=== PATIENT | female | born 1940 | race Caucasian/White ===

== ENCOUNTER 2016-12-02 04:17 | Inpatient (IN) | payer OTHER, MEDICARE ==
[~2016-12-02] VITALS: Ht 157.5 cm; Wt 97.5 kg
[~2016-12-02 04:17] MED LIST: CLONAZEPAM0.5 M2 PO; DILTIAZEM 12HR120 MG PO; FERROUS SULFAT325 M3 PO; LOPRESSOR100 M1 PO; LOPRESSOR50 M1 PO; PRAVACHOL20 M2 PO
--- NOTE | 2016-12-02 12:34 | Operative Report ---
Operative/Inv Procedure Report Surgery Date: 12/02/16 Name of Procedure: Right total knee arthroplasty Pre-Operative Diagnosis: Right knee osteoarthritis Post-Operative Diagnosis: Right knee osteoarthritis Estimated Blood Loss: less than 50ml Surgeon/[place] Machine Operator: BASILIO GARCIA,MAXIMILIAN Schumacher Anesthesia: spinal with adductor canal block Operative/Procedure Note Note: Patient brought to the operating room placed on the table supine position after adequate spinal anesthesia by the anesthesia department she received 2 g of Kefzol antibiotics. Clinically placed her on right upper thigh the right leg was first prepped with alcohol and then prepped formally with ChloraPrep. A dose of transient epigastric given at the beginning of the procedure and after the tourniquet had come down. 1 g each dose. As mentioned right leg prepped and draped in usual sterile fashion leg exsanguinated tourniquet inflated to 300 mmHg per minute with about 60 minutes. A midline incision carried down to the extensor retinaculum. A medial flap was created. A medial parapatellar approach was carried out. Medial release carried out around the posterior medial tibia. Anterior horns of the menisci ACL and PCL resected as well as the soft tissue on the anterior distal femur for sizing. The patella was everted the knee flexed and then using a inappropriate initial drill into the femoral and tibial intramedullary canal sequentially. Irrigation and suction was carried out. Appropriate first cutting jig placed on the distal femur 9 mm cut was made. This was done at 6 of valgus. Sizing block was then placed on the femur and the patient's femoral size turned out to be a 3. The appropriate size and 3 of external rotation the appropriate anterior posterior and chamfer cuts were made. The femoral notch was then cut out of the femur for a posterior stabilized component using the appropriate femoral cutting guide. The bone was later placed in the femoral canal. The tibia was then addressed to was cut at 90 perpendicular to the long axis of the tibia and a 3 posterior slope. Reference 10 mm off the least affected medial tibial plateau. The femoral component was placed a tibial component placed with a 13 polyethylene insert the was taken through range of motion the tibia then marked after an oral rotated with the femur. The tibia was then prepared using the appropriate eye beating punch. This did light up at the medial one third of the tibial tuberosity. The patella was then addressed soft tissue removed from the patella osteophytes removed appropriate reaming device used to take just enough bone to fill the patella with the size component that was best for this patient. Patellar outer diameter was 31 mm the tibial base plate turned out to be 3 also. After completing all of the cuts and drawing blood. Patella though posterior irrigation was carried out. Components were cemented in place starting with the tibia and the femur and the patella. Extraneous cement removed. The was taken through range of motion again with a [address] which gave her the best stability and full range of motion. We then snapped the final component of polyethylene into the tibial base plate. The tourniquet was released any bleeding areas coagulated several pulsed irrigation carried out there were 2 injections done in the in the one in the deep layer of the posterior capsule and along the medial femur that again was with long-acting Marcaine morphine and Toradol. Section injection was into the quad layer. After several pulsed irrigation was closed in a layered fashion dry sterile dressings were applied she was sent back to the recovery room in stable condition there were no complications and all needle and shrink counts were correct end of dictation by Dr. Luo thank you
--- NOTE | 2016-12-02 16:13 | PN- Orthopedic ---
Subjective Subjective: POST-OP NOTE: She is nauseous and vomiting in pacu. No dizziness. No shortness of breath. No chest pains. Not yet out of bed since she is currently in pacu and feeling miserable from nausea/vomiting. She has been given multiple anti-emetics with little improvement so far. Objective Vital Signs and I&Os pacu flowsheet reviewed (vss), u/o >700 (OR & PACU) Physical Exam: General - alert & oriented x 3. uncomfortable. no acute distress. Lungs - clear bilaterally. no w/r/r. Cardiac - s1s2. reg. Abdomen - soft. nontender. - uribe draining clear, yellow urine. Extremities - warm bilaterally. no c/c/e. calves soft and nontender b/l. right leg dressing c/d/i. nvi. Current Medications: Current Medications Sig/Robby Start time Last Medication Dose Route Stop Time Status Admin Cefazolin Sodium 1,000 MG ONCE 12/02 0000 NR IV 12/02 4349 Assessment/Plan Assessment/Plan This 76 year old female with hx vertigo, hx tachycardia, gerd, currently POD#0 s /p right total knee replacement for primary osteoarthritis advance diet as tolerated anti-emetics as needed for nausea/vomiting pain control as ordered debbie-operative ancef eliquis 2.5 bid - dvt ppx PT eval d/c uribe in am f/u am labs dressing change POD#2 d/c planning in 2-3 days will d/w Core Measures/Miscellaneous Venous Thromboembolism VTE Risk Factors: Age > 40, Surgery VTE Contraindications: No Contraindications VTE Diagnosis: No Beta January Is Beta January a Home Med? Yes If Yes, Was This Ordered Today? Yes Antibiotics Is Patient on Antibiotics? Yes If Yes: prophylaxis
--- NOTE | 2016-12-02 18:10 | NUR ---
PT A/O X3. PT ON 2L NC . PT STATES PAIN MODERATE DENIES NEED FOR PRN PAIN MED AT PRESENT. VSS. NO C/O CP. ABD SOFT. TODD TO BSD. BULKY DRSG TO R KNEE COVERED W CARMEN WRAP. + CMS . ALPS TO BLE. CALL [facility] USE INSTRUCTED. WILL MONITOR .
[2016-12-02 18:25] VITALS: BP 124/74
--- NOTE | 2016-12-02 19:38 | NUR ---
PT C/O "HEART RACING". HR 140 BP 120/70 TEMP 97.1. PAIN MODERATE 5/10 IV TYLENOL GIVEN. MIKE ROJAS AWARE AND EKG ORDERED. WILL MONITOR
--- NOTE | 2016-12-02 19:49 | NUR ---
STAT BLOOD ORDERED AND OBTAINED. DENIES CP. STATES " MY HEARTS STILL RACING". PT TO BE TRANSFERED TO [address] [place] [address]. AWAITNI BED ASSIGNMENT.
[2016-12-02 20:15] VITALS: BP 120/70
[2016-12-02 20:25] LABS: ABSOLUTE BASOPHIL COUNT 0 /CUMM (0.0-0.2); ABSOLUTE LYMPH COUNT 0.8 /CUMM (1.2-3.4); BASOPHIL % 0 % (0.0-2.0); EOSINOPHIL % 0 % (0-5); HEMATOCRIT 43.5 % (37-47); MEAN CORPUSCULAR HGB 34.3 PG (27.0-31.0); MEAN CORPUSCULAR HGB CONC 33.6 G/DL (33.0-37.0); MEAN CORPUSCULAR VOLUME 101.9 FL (81.0-99.0); MEAN PLATELET VOLUME 8.1 FL (7.4-10.4); PLATELET COUNT 227 /CUMM (130-400); RBC DISTRIBUTION WIDTH 12.8 % (11.5-14.5); RED BLOOD CELL CT 4.26 /CUMM (4.20-5.40); WHITE BLOOD CELL COUNT 15.4 /CUMM (4.8-10.8)
[2016-12-02 20:27] LABS: ABSOLUTE GRANULOCYTE CT 14.6 /CUMM (1.4-6.5); ABSOLUTE MONOCYTE COUNT 0.1 /CUMM (0.10-0.60)
--- NOTE | 2016-12-02 20:27 | RADIOLOGY REPORT ---
EXAMINATION: XR PORTABLE CHEST CLINICAL INFORMATION: Postop. Tachycardia. COMPARISON: None TECHNIQUE: Portable frontal view of the chest was obtained. 8:07 PM FINDINGS: No significant abnormality is noted involving the heart, lungs, mediastinum, bony thorax or soft tissues. IMPRESSION: Unremarkable examination.
[2016-12-02 20:43] LABS: GRANULOCYTE % 94.8 % (42.2-75.2)
--- NOTE | 2016-12-02 21:50 | Cons- Medical ---
General Information and HPI Consulting Request Date of Consult: 12/02/16 Requested By: MAXIMILIAN RICHMOND MD Reason for Consult: A fib with RVR Source of Information: patient Exam Limitations: no limitations History of Present Illness: 76-year-old female with past medical history of palpitation (?paroxysmal atrial fibrillation), GERD, vertigo, osteoarthritis was operated on today. She underwent right total knee replacement for primary osteoarthritis, without apparent complications today. Patient complained of palpitations around 7:30 PM today, for which the surgical PA requested medical evaluation/consultation. Patient gave history of similar palpitations in the past, but denied chest pain, shortness of breath, dizziness, vertigo. She had some nausea but no vomiting. Patient follows language assistant Dr. Cheri Neely in [place]. Allergies/Medications Allergies: Coded Allergies: No Known Allergies (11/19/16) Home Med List: Clonazepam 0.5 MG TABLET 1 TAB PO BIDP VERTIGO (Reported) Diltiazem HCl (Diltiazem 12HR ER) 120 MG CAP.ER.12H 1 CAP PO DAILY HTN ( Reported) Ferrous Sulfate 325 MG (65 MG IRON) TABLET 1 TAB PO DAILY PRE OP (Reported) Metoprolol Tartrate (Lopressor) 100 MG TABLET 1 TAB PO BID BP (Reported) Metoprolol Tartrate (Lopressor) 50 MG TABLET 1 TAB PO NOON BP (Reported) Pravastatin Sodium (Pravachol) 20 MG TABLET 1 TAB PO DAILY CHOLESTEROL ( Reported) Review of Systems Review of Systems Constitutional: Reports: no symptoms. EENTM: Reports: no symptoms. Cardiovascular: Reports: see HPI, palpitations. Denies: chest pain, orthopena, peripheral edema. Respiratory: Reports: no symptoms. Denies: cough, short of breath, wheezing. GI: Reports: no symptoms. Genitourinary: Reports: no symptoms. Musculoskeletal: Reports: see HPI. Skin: Reports: see HPI. Neurological/Psychological: Reports: no symptoms. Hematologic/Endocrine: Reports: no symptoms. All Other Systems: Reviewed and Negative Past History Medical History Neurological: vertigo EENT: NONE Cardiovascular: TACHYCARDIC Respiratory: NONE Gastrointestinal: GERD Hepatic: NONE Renal: NONE Musculoskeletal: NONE Psychiatric: NONE Endocrine: osteoporosis Blood Disorders: NONE Cancer(s): NONE REWORKER/Reproductive: NONE Surgical History Surgical History: knee replacement Psychosocial History Where Do You Live? Home Services at Home: None Smoking Status: Never Smoked Exam & Diagnostic Data Last 24 Hrs of Vital Signs/I&O Vital Signs Date Time Temp Pulse Resp B/P B/P Pulse O2 O2 Flow FiO2 Mean Ox Delivery Rate 12/02 2014 97.9 118 16 120/70 97 Nasal 2.0L Cannula 12/02 1944 132 120/70 12/02 1852 Nasal 2.0L Cannula 12/02 1825 96.1 85 16 124/74 98 Nasal 2.0L Cannula Physical Exam General Appearance: anxious, mild distress, obese Head: atraumatic, normal appearance Eyes: Bilateral: normal appearance, PERRL, EOMI. Ears, Nose, Throat: normal pharynx, normal ENT inspection, hearing grossly normal, moist mucus membranes Neck: normal inspection, supple, full range of motion Respiratory: normal breath sounds, chest non-tender, no respiratory distress, quiet respiration, lungs clear Cardiovascular: normal peripheral pulses, tachycardia, irregularly irregular, S1 , S2 normal Peripheral Pulses: 4+ radial (R), 4+ radial (L) Gastrointestinal: normal bowel sounds, soft, non-tender, no organomegaly Back: normal inspection, normal range of motion Extremities: normal inspection, right side surgery today, dressing in situ Neurologic/Psych: no motor/sensory deficits, awake, alert, oriented x 3, normal mood/affect, grossly intact Skin: intact, normal color, warm/dry Lymphatic: no anterior cervical jeancarlos Last 24 Hrs of Labs/Alberto: Laboratory Tests 12/02/161952: Anion Gap 11, Estimated GFR > 60, BUN/Creatinine Ratio 16.0, Phosphorus 2.4 L, Magnesium 1.8, Troponin I 0.01, TSH 0.573, Free T4 1.06, CBC w Diff NO MAN DIFF REQ, RBC 4.26, MCV 101.9 H, MCH 34.3 H, RDW 12.8, MPV 8.1, Gran % 94.8 H, Lymphocytes % 4.9 L, Monocytes % 0.3 L, Eosinophils % 0, Basophils % 0 L, Absolute Granulocytes 14.6 H, Absolute Lymphocytes 0.8 L, Absolute Monocytes 0.1 L, Absolute Eosinophils 0.0, Absolute Basophils 0, PUBS MCHC 33.6 Diagnostic Data EKG Results atrial fibrillation with heart rate 122, QTc 508, no ST-T changes, no signs of blocks. CXR Results Chest x-ray: Unremarkable examination on 12/02/2016 Assessment/Plan Assessment/Plan 76-year-old female with past medical history of tachycardia (?paroxysmal atrial fibrillation), GERD, vertigo, osteoarthritis was operated on with right total knee replacement for osteoarthritis, is currently having atrial fibrillation with rapid ventricular response. She mentions of paroxysmal palpitations in the past and she takes metoprolol 250 mg in toto daily, and Eliquis daily. Of note, her EKG from October 2016 shows normal sinus rhythm. She had not receive her 100mg Metoprolol this evening, when the symptoms began. Plan: * Transfer patient to telemetry for further monitoring * Rule out ACS with serial EKG and troponin, noting that the current troponin is 0.01 and the EKG does not show any ST-T changes. * Start Cardizem drip 125 mg in 100 mL normal saline at 5 mL per hour, and titrate heart rate and rhythm. When patient breaks into sinus rhythm, obtain an EKG. Inform MOD/Telecommunications Officer if HR<60/min. * Replete potassium to>4, and magnesium to>2 (IV); repeat BP in the morning * Continue metoprolol as home medication, that is 100 mg twice a day and 50 mg at noon time * Please give Eliquis 5mg PO BID if okay from surgical side * Give Inj Tigan 200mg IM for nausea, ovoid QTc prolonging drugs like Zofran as the QTc is already >500. * Telecommunications Officer Dr Valentín Hoffmann will add more recommendations. * Call MOD (pager [phone]) if necessary. Consult Acknowledgment - Thank you for your consult request.
--- NOTE | 2016-12-02 22:43 | Event Note ---
Event Note Event Note: Called by nurse on 2NA regarding patient complaint of palpitations and the sensation that "my heart is beating out of my chest". The following studies were done: EKG: atrial fibrillation with RVR Chest Xray: unremarkable CBC: hgb:hct 14.6:43.5 Lytes: Hypokalemia 3.3, Magnesium 1.8 Troponins: 0.01 Physical exam: Alert and oriented x3, no acute distress Cardiac: Irregulary irregular, tachycardic Pulmonary: Non labored respiratory effort, 2L nasal cannula, breath sounds clear to auscultation. Abdomen: Non-tender, non-distended Extremity: Moves all extremities, distal sensation intact, skin warm and well perfused, dressing dry and intact, no on Q in place, bilateral calves soft and non-tender. Pateint was transferred to telemetry. A 500cc bolus of NS was given due to patients copious amounts of emesis in the early post operative period. PO metropolol was given while still on general surgical floor. A consult was placed with DR. Hoffmann and subsequently a cardizem gtt at 5/hr was started on telemetry floor. Potassium was repleted with three runs of 10 mEq IV. Magnesium was repleted with one iv dose. Labs will be redrawn at midnight to repeat lytes as well as troponins. Anticoagulation was discussed and Eliquis 5 mg po bid will be started tomorrow if patient is tolerating po, if not, a hep gtt will be initiated. The situation and plan of care was discussed with Dr. Luo who is in agreement. Patient was evaluated by house staff and they will follow progress and co-manage patient.
[2016-12-03] VITALS: BP 118/76
[2016-12-03 02:00] VITALS: BP 110/68
[2016-12-03 04:00] VITALS: BP 106/68
--- NOTE | 2016-12-03 07:26 | PN- Orthopedic ---
Subjective Subjective: PATIENT HAD AN EPISODE AOF AFIB LAST NIGHT ON TELEMETRY BUT DOING WELL.States minimal pain has not been oob yet expect OOB today WBAT with walker ok to bend knee 0-120 Objective Vital Signs and I&Os Vital Signs Date Time Temp Pulse Resp B/P B/P Pulse O2 O2 Flow FiO2 Mean Ox Delivery Rate 12/03 0400 97.9 68 18 106/68 97 Nasal 2.0L Cannula 12/03 0200 98.7 98 18 110/68 96 Nasal 2.0L Cannula 12/03 0000 Nasal 2.0L Cannula 12/03 0000 98.7 108 18 118/76 96 Nasal 2.0L Cannula 12/02 2014 97.9 118 16 120/70 97 Nasal 2.0L Cannula 12/02 1944 132 120/70 12/02 1852 Nasal 2.0L Cannula 12/02 1825 96.1 85 16 124/74 98 Nasal 2.0L Cannula Intake & Output 12/03 0800 12/03 0000 12/02 1600 12/02 0800 12/02 0000 12/01 1600 Intake Total 500 Output Total 1100 Balance -600 Intake, IV 500 Intake, Oral 0 Output, Urine 1100 Patient 215 lb Weight Weight Reported by Patient Measurement Method Physical Exam: patient alert minimal pain dressing clean neuro intact dressing clean Assessment/Plan Assessment/Plan doing well orthopedically POD#1 s/p right total knee OOB today DVT prophylaxis cardiology and medicine for her arrythmia. probable dc to SNF sat am Core Measures/Miscellaneous Venous Thromboembolism VTE Risk Factors: Age > 40, Surgery VTE Contraindications: No Contraindications VTE Diagnosis: No Beta January Is Beta January a Home Med? Yes If Yes, Was This Ordered Today? Yes Antibiotics Is Patient on Antibiotics? Yes If Yes: prophylaxis Attending MD Review Statement Attending Statement Attending MD Statement: examined this patient
[2016-12-03 08:09] LABS: ABSOLUTE BASOPHIL COUNT 0 /CUMM (0.0-0.2); ABSOLUTE EOSINOPHIL COUNT 0 /CUMM (0.0-0.7); ABSOLUTE GRANULOCYTE CT 17.8 /CUMM (1.4-6.5); ABSOLUTE MONOCYTE COUNT 0.3 /CUMM (0.10-0.60); BASOPHIL % 0 % (0.0-2.0); EOSINOPHIL % 0 % (0-5); GRANULOCYTE % 93.2 % (42.2-75.2); HEMATOCRIT 40.8 % (37-47); MEAN CORPUSCULAR HGB 34.7 PG (27.0-31.0); MEAN CORPUSCULAR VOLUME 102.3 FL (81.0-99.0); MEAN PLATELET VOLUME 8.4 FL (7.4-10.4); PLATELET COUNT 222 /CUMM (130-400); RBC DISTRIBUTION WIDTH 12.9 % (11.5-14.5); RED BLOOD CELL CT 3.99 /CUMM (4.20-5.40)
--- NOTE | 2016-12-03 08:22 | PN- Gen Med ---
Assessment/Plan Assessment: 76-year-old female with past medical history of tachycardia (?paroxysmal atrial fibrillation), GERD, vertigo, osteoarthritis was operated on with right total knee replacement for osteoarthritis, is currently having atrial fibrillation with rapid ventricular response. She mentions of paroxysmal palpitations in the past and she takes metoprolol 250 mg in toto daily, and Eliquis daily. Of note, her EKG from October 2016 shows normal sinus rhythm. She converted back to normal sinus rhythm confirmed by EKG around 3 AM this morning. Plan: * We will discontinue Cardizem drip and will watch patient on her current regimen of metoprolol. * ACS was ruled out with negative troponins * Replete potassium to keep>4, and magnesium to keep>2 ; repeat BP in the morning * Continue metoprolol as home medication, that is 100 mg twice a day and 50 mg at noon time * Please give Eliquis 5mg PO BID if okay from surgical side * Give Inj Tigan 200mg IM for nausea, ovoid QTc prolonging drugs like Zofran as the QTc is already >500. * Patient was discussed with Dr. Hoffmann * Call MOD (pager [phone]) if necessary. Problem List: 1. Atrial fib/flutter, transient DVT/Prophylaxis: pharmacological Consulting Request: Consulting Specialty: Cardiology Consulting Physician: Dr. Hoffmann Reason for Consult: ATRIAL FIBRILLATION Subjective Follow-up For: A. fib Complaints: no complaints Tele-Events Since Last Visit: Normal sinus rhythm heart rate ranges from 60s to 70s Subjective: The patient was seen and examined this morning. She was lying comfortably in bed with complaining of mild nausea. She is experiencing nausea after taking oxycodone and we will avoid this for now. She was converted back to sinus rhythm around 3 AM this morning and remained in sinus rhythm. Her heart rate dropped down to 60s and currently she is on Cardizem drip. She denied any palpitations, chest pain, dizziness or headache. Review of Systems Constitutional: Denies: chills, diaphoresis. Cardiovascular: Denies: chest pain, edema, orthopena, palpitations. Respiratory: Denies: hemoptysis, orthopnea. Gastrointestinal: Reports: nausea. Genitourinary: Denies: frequency, hematuria. Objective Last 24 Hrs of Vital Signs/I&O Vital Signs Date Time Temp Pulse Resp B/P B/P Pulse O2 O2 Flow FiO2 Mean Ox Delivery Rate 12/03 0400 97.9 68 18 106/68 97 Nasal 2.0L Cannula 12/03 0200 98.7 98 18 110/68 96 Nasal 2.0L Cannula 12/03 0000 Nasal 2.0L Cannula 12/03 0000 98.7 108 18 118/76 96 Nasal 2.0L Cannula 12/02 2014 97.9 118 16 120/70 97 Nasal 2.0L Cannula 12/02 1944 132 120/70 12/02 1852 Nasal 2.0L Cannula 12/02 1825 96.1 85 16 124/74 98 Nasal 2.0L Cannula Intake & Output 12/03 1600 12/03 0800 12/03 0000 Intake Total 1380 Output Total 2450 Balance -1070 Intake, IV 1140 Intake, Oral 240 Output, Urine 2450 Patient 215 lb Weight Weight Reported by Patient Measurement Method Physical Exam General Appearance: Alert, Oriented X3, Cooperative Skin: No Significant Lesion Cardiovascular: Regular Rate, Normal S1, Normal S2 Lungs: Normal Air Movement Current Medications: Current Medications Sig/Robby Start time Last Medication Dose Route Stop Time Status Admin Acetaminophen 1,000 MG Q6-PRN PRN 12/03 0845 AC N/A 1 UNIT IV Acetaminophen 1,000 MG Q6H 12/02 1915 DC 12/03 N/A 1 UNIT IV 12/03 1329 0615 Apixaban 2.5 MG BID 12/03 1000 CAN PO Apixaban 5 MG BID 12/02 2200 AC 12/03 PO 0216 Cefazolin Sodium 2 GM Q8H 12/02 2000 DC 12/03 N/A 1 UNIT IV 12/03 0429 0549 Cefazolin Sodium 1,000 MG ONCE 12/02 0000 DC IV 12/02 2359 Clonazepam 0.5 MG BID PRN 12/02 181 AC 12/03 PO 12/09 1814 0131 Dextrose/Lactated 1,000 ML Q13H 12/02 181 DC 12/02 Ringer's IV 1848 Diltiazem HCl 120 MG DAILY 12/03 1000 CAN PO Diltiazem HCl 125 MG Q24H 12/02 2045 DC 12/02 Sodium Chloride 100 ML IV 2136 Docusate Sodium 100 MG DAILY NEEDED PRN 12/02 1814 AC PO Famotidine 20 MG .STK-MED ONE 12/02 1343 DC IV 12/02 1344 Fentanyl Citrate 200 MCG .STK-MED ONE 12/02 0950 DC IM 12/02 0951 Hydromorphone HCl 2 MG .STK-MED ONE 12/02 1259 DC IM 12/02 1300 Hydromorphone HCl 2 MG .STK-MED ONE 12/02 0950 DC IM 12/02 0951 Lorazepam 2 MG .STK-MED ONE 12/02 1951 DC IM 12/02 1952 Magnesium Sulfate 1 GM ONCE ONE 12/02 2100 DC 12/03 Dextrose/Water 100 ML IV 12/03 0059 0638 Metoclopramide HCl 10 MG .STK-MED ONE 12/02 1552 DC IM 12/02 1553 Metoprolol Tartrate 50 MG 1200 12/03 1200 AC PO Metoprolol Tartrate 100 MG BID 12/02 2199 AC 12/02 PO 1944 Midazolam HCl 4 MG .STK-MED ONE 12/02 0951 DC IM 12/02 0952 Morphine Sulfate 2 MG Q3P PRN 12/02 1814 AC IV Morphine Sulfate 2 MG Q3P PRN 12/02 181 AC 12/02 IV 2313 Ondansetron HCl 4 MG Q6P PRN 12/02 181 AC 12/03 IV 0812 Oxycodone HCl 5 MG Q4P PRN 12/02 1914 AC PO Oxycodone HCl 10 MG Q4P PRN 12/02 191 AC 12/03 PO 0537 Oxycodone/ 1 TAB Q4P PRN 12/02 181 DC Acetaminophen PO Oxycodone/ 2 TAB Q4P PRN 12/02 181 DC Acetaminophen PO Polyethylene Glycol 17 GM DAILY NEEDED PRN 12/02 181 AC PO Potassium Chloride 40 MEQ ONCE ONE 12/03 0845 DC PO 12/03 0846 Potassium Chloride 10 MEQ Q1H 12/02 2100 DC 12/03 IV 12/02 2301 0352 Pravastatin Sodium 20 MG 1700 12/03 1700 AC PO Senna/Docusate Sodium 2 TAB AT BEDTIME NEED.. 12/02 181 AC PO Sodium Chloride 500 ML BOLUS ONE 12/02 194 DC 12/03 IV 12/02 2044 0033 Trimethobenzamide HCl 200 MG TIDPRN PRN 12/02 2100 AC 12/02 IM 2312 Last 24 Hrs of Labs/Mics: Laboratory Tests 12/03/16 0625: Anion Gap 11, Estimated GFR > 60, BUN/Creatinine Ratio 14.0, CBC w Diff Pending, WBC Pending, RBC Pending, Hgb Pending, Hct Pending, MCV Pending, MCH Pending, RDW Pending, Plt Count Pending, MPV Pending, Gran % Pending, Lymphocytes % Pending, Monocytes % Pending, Eosinophils % Pending, Basophils % Pending, Absolute Granulocytes Pending, Absolute Lymphocytes Pending, Absolute Monocytes Pending, Absolute Eosinophils Pending, Absolute Basophils Pending, PUBS MCHC Pending 12/03/16 0230: Anion Gap 10, Estimated GFR > 60, BUN/Creatinine Ratio 14.0, Magnesium Pending, Troponin I 0.01 12/02/16 1953: Anion Gap 11, Estimated GFR > 60, BUN/Creatinine Ratio 16.0, Phosphorus 2.4 L, Magnesium 1.8, Troponin I 0.01, TSH 0.573, Free T4 1.06, CBC w Diff NO MAN DIFF REQ, RBC 4.26, MCV 101.9 H, MCH 34.3 H, RDW 12.8, MPV 8.1, Gran % 94.8 H, Lymphocytes % 4.9 L, Monocytes % 0.3 L, Eosinophils % 0, Basophils % 0 L, Absolute Granulocytes 14.6 H, Absolute Lymphocytes 0.8 L, Absolute Monocytes 0.1 L, Absolute Eosinophils 0.0, Absolute Basophils 0, PUBS MCHC 33.6 Microbiology 12/02 1045 URINE ROUT: Urine Culture - RES
--- NOTE | 2016-12-03 09:39 | Cons- Cardiology ---
General Information and HPI Consulting Request Date of Consult: 12/03/16 Requested By: BASILIO GARCIA,MAXIMILIAN Schumacher Reason for Consult: atrial fibrillation History of Present Illness: The patient is a pleasant 76-year-old female who is followed by Dr. Neely from my group with history of hypertension, anxiety, and palpitations who was admitted for right knee arthroplasty yesterday. The surgery was without couple locations, however postoperatively she was noted to develop atrial fibrillation. The ventricular rate was mildly elevated, and IV diltiazem was started. Her usual dose of metoprolol is 100 mg twice a day with an additional 50 mg dose in the middle of the day. This was restarted, IV diltiazem was discontinued. She converted to sinus rhythm after several hours. She notes that while she was in atrial fibrillation she felt a sensation of palpitations, which were different from her usual palpitations. She is now feeling well from a cardiac standpoint. No current palpitations. No chest pain. No lightheadedness or dizziness. No nausea or vomiting. No diaphoresis. Allergies/Medications Allergies: Coded Allergies: No Known Allergies (11/19/16) Home Med List: Clonazepam 0.5 MG TABLET 1 TAB PO BIDP VERTIGO (Reported) Diltiazem HCl (Diltiazem 12HR ER) 120 MG CAP.ER.12H 1 CAP PO DAILY HTN ( Reported) Ferrous Sulfate 325 MG (65 MG IRON) TABLET 1 TAB PO DAILY PRE OP (Reported) Metoprolol Tartrate (Lopressor) 100 MG TABLET 1 TAB PO BID BP (Reported) Metoprolol Tartrate (Lopressor) 50 MG TABLET 1 TAB PO NOON BP (Reported) Pravastatin Sodium (Pravachol) 20 MG TABLET 1 TAB PO DAILY CHOLESTEROL ( Reported) Current Medications: Current Medications Sig/Robby Start time Last Medication Dose Route Stop Time Status Admin Acetaminophen 1,000 MG Q6-PRN PRN 12/03 0845 AC N/A 1 UNIT IV Acetaminophen 1,000 MG Q6H 12/02 1915 DC 12/03 N/A 1 UNIT IV 12/03 1329 0615 Apixaban 2.5 MG BID 12/03 1000 CAN PO Apixaban 5 MG BID 12/02 2200 AC 12/03 PO 0921 Cefazolin Sodium 2 GM Q8H 12/02 2000 DC 12/03 N/A 1 UNIT IV 12/03 0429 0549 Cefazolin Sodium 1,000 MG ONCE 12/02 0000 DC IV 12/02 2359 Clonazepam 0.5 MG BID PRN 12/02 1815 AC 12/03 PO 12/09 1814 0131 Dextrose/Lactated 1,000 ML Q13H 12/02 1815 DC 12/02 Ringer's IV 1848 Diltiazem HCl 120 MG DAILY 12/03 1000 CAN PO Diltiazem HCl 125 MG Q24H 12/02 2045 DC 12/02 Sodium Chloride 100 ML IV 2136 Docusate Sodium 100 MG DAILY NEEDED PRN 12/02 181 AC 12/03 PO 0919 Famotidine 20 MG .STK-MED ONE 12/02 1343 DC IV 12/02 1344 Hydromorphone HCl 2 MG .STK-MED ONE 12/02 1259 DC IM 12/02 1300 Lorazepam 2 MG .STK-MED ONE 12/02 1951 DC IM 12/02 1952 Magnesium Sulfate 1 GM ONCE ONE 12/02 2100 DC 12/03 Dextrose/Water 100 ML IV 12/03 0059 0638 Meclizine HCl 12.5 MG ONCE ONE 12/03 1000 DC PO 12/03 1001 Metoclopramide HCl 10 MG .STK-MED ONE 12/02 1552 DC IM 12/02 1553 Metoprolol Tartrate 50 MG 1200 12/03 1200 AC PO Metoprolol Tartrate 100 MG BID 12/02 2200 AC 12/03 PO 0920 Morphine Sulfate 2 MG Q3P PRN 12/02 1814 AC IV Morphine Sulfate 2 MG Q3P PRN 12/02 181 AC 12/02 IV 2313 Ondansetron HCl 4 MG Q6P PRN 12/02 181 AC 12/03 IV 0812 Oxycodone HCl 5 MG Q4P PRN 12/02 191 AC PO Oxycodone HCl 10 MG Q4P PRN 12/02 191 AC 12/03 PO 0537 Oxycodone/ 1 TAB Q4P PRN 12/02 1814 DC Acetaminophen PO Oxycodone/ 2 TAB Q4P PRN 12/02 181 DC Acetaminophen PO Polyethylene Glycol 17 GM DAILY NEEDED PRN 12/02 181 AC PO Potassium Chloride 40 MEQ ONCE ONE 12/03 0845 DC 12/03 PO 12/03 0846 0921 Potassium Chloride 10 MEQ Q1H 12/02 2100 DC 12/03 IV 12/02 2301 0352 Pravastatin Sodium 20 MG 1700 12/03 1700 AC PO Senna/Docusate Sodium 2 TAB AT BEDTIME NEED.. 12/02 181 AC PO Sodium Chloride 500 ML BOLUS ONE 12/02 1944 DC 12/03 IV 12/02 2044 0033 Trimethobenzamide HCl 200 MG TIDPRN PRN 12/02 2100 AC 12/03 IM 0921 Review of Systems Review of Systems: No rash. No tremor. No melena. All other systems were reviewed, and were noted to be negative. 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 Home Services at Home: None Smoking Status: Never Smoked Exam & Diagnostic Data Vital Signs and I&O Vital Signs Date Time Temp Pulse Resp B/P B/P Pulse O2 O2 Flow FiO2 Mean Ox Delivery Rate 12/03 0920 65 106/68 12/03 0400 97.9 68 18 106/68 97 Nasal 2.0L Cannula 12/03 0200 98.7 98 18 110/68 96 Nasal 2.0L Cannula 12/03 0000 Nasal 2.0L Cannula 12/03 0000 98.7 108 18 118/76 96 Nasal 2.0L Cannula 12/02 2014 97.9 118 16 120/70 97 Nasal 2.0L Cannula 12/03 1943 132 120/70 12/02 1852 Nasal 2.0L Cannula 12/02 1824 96.1 85 16 124/74 98 Nasal 2.0L Cannula Intake & Output 12/03 1600 12/03 0800 12/03 0000 12/02 1600 12/02 0800 12/02 0000 Intake Total 1380 Output Total 2450 Balance -1070 Intake, IV 1140 Intake, Oral 240 Output, Urine 2450 Patient 215 lb Weight Weight Reported by Patient Measurement Method Physical Exam: Gen: The patient is in no acute distress HEENT: Normal nose, ears, and oropharynx. Pupils equal bilaterally. Conjunctiva normal. Neck: Supple with no JVD, no masses, and no thyromegaly Lungs: Clear to auscultation with normal respiratory effort Heart: RRR, S1, S2, no murmurs. No peripheral edema, 2+ pulses in the lower extremities bilaterally Abdomen: Soft, nontender, no masses. No hepatomegaly. No splenomegaly Extremities: No clubbing or cyanosis. Normal muscle strength in the upper and lower extremities Skin: Normal skin turgor with no skin ulcers or lesions noted. Neuro: Cranial nerves intact. Sensation intact Psych: Alert and oriented 3 with appropriate affect Labs/Alberto Results: Laboratory Tests 12/03 12/03 0625 0230 Chemistry Sodium (137 - 145 mmol/L) 138 137 Potassium (3.5 - 5.1 mmol/L) 3.6 3.7 Chloride (98 - 107 mmol/L) 104 102 Carbon Dioxide (22 - 30 mmol/L) 23 25 Anion Gap (5 - 16) 11 10 BUN (7 - 17 mg/dL) 7 7 Creatinine (0.5 - 1.0 mg/dL) 0.5 0.5 Estimated GFR (>60 ml/min) > 60 > 60 BUN/Creatinine Ratio (7 - 25 %) 14.0 14.0 Magnesium (1.6 - 2.3 mg/dL) 1.6 Troponin I (< 0.11 ng/ml) 0.01 Hematology CBC w Diff NO MAN DIFF REQ WBC (4.8 - 10.8 /CUMM) 19.1 H RBC (4.20 - 5.40 /CUMM) 3.99 L Hgb (12.0 - 16.0 G/DL) 13.9 Hct (37 - 47 %) 40.8 MCV (81.0 - 99.0 FL) 102.3 H MCH (27.0 - 31.0 PG) 34.7 H RDW (11.5 - 14.5 %) 12.9 Plt Count (130 - 400 /CUMM) 222 MPV (7.4 - 10.4 FL) 8.4 Gran % (42.2 - 75.2 %) 93.2 H Lymphocytes % (20.5 - 51.1 %) 5.1 L Monocytes % (1.7 - 9.3 %) 1.7 Eosinophils % (0 - 5 %) 0 Basophils % (0.0 - 2.0 %) 0 L Absolute Granulocytes (1.4 - 6.5 /CUMM) 17.8 H Absolute Lymphocytes (1.2 - 3.4 /CUMM) 1.0 L Absolute Monocytes (0.10 - 0.60 /CUMM) 0.3 Absolute Eosinophils (0.0 - 0.7 /CUMM) 0 Absolute Basophils (0.0 - 0.2 /CUMM) 0 PUBS MCHC (33.0 - 37.0 G/DL) 34.0 12/02 1952 Chemistry Sodium (137 - 145 mmol/L) 135 L Potassium (3.5 - 5.1 mmol/L) 3.3 L Chloride (98 - 107 mmol/L) 99 Carbon Dioxide (22 - 30 mmol/L) 26 Anion Gap (5 - 16) 11 BUN (7 - 17 mg/dL) 8 Creatinine (0.5 - 1.0 mg/dL) 0.5 Estimated GFR (>60 ml/min) > 60 BUN/Creatinine Ratio (7 - 25 %) 16.0 Phosphorus (2.5 - 4.5 mg/dL) 2.4 L Magnesium (1.6 - 2.3 mg/dL) 1.8 Troponin I (< 0.11 ng/ml) 0.01 TSH (0.270 - 4.200 uIU/mL) 0.573 Free T4 (0.78 - 2.44 ng/dL) 1.06 Hematology CBC w Diff NO MAN DIFF REQ WBC (4.8 - 10.8 /CUMM) 15.4 H RBC (4.20 - 5.40 /CUMM) 4.26 Hgb (12.0 - 16.0 G/DL) 14.6 Hct (37 - 47 %) 43.5 MCV (81.0 - 99.0 FL) 101.9 H MCH (27.0 - 31.0 PG) 34.3 H RDW (11.5 - 14.5 %) 12.8 Plt Count (130 - 400 /CUMM) 227 MPV (7.4 - 10.4 FL) 8.1 Gran % (42.2 - 75.2 %) 94.8 H Lymphocytes % (20.5 - 51.1 %) 4.9 L Monocytes % (1.7 - 9.3 %) 0.3 L Eosinophils % (0 - 5 %) 0 Basophils % (0.0 - 2.0 %) 0 L Absolute Granulocytes (1.4 - 6.5 /CUMM) 14.6 H Absolute Lymphocytes (1.2 - 3.4 /CUMM) 0.8 L Absolute Monocytes (0.10 - 0.60 /CUMM) 0.1 L Absolute Eosinophils (0.0 - 0.7 /CUMM) 0.0 Absolute Basophils (0.0 - 0.2 /CUMM) 0 PUBS MCHC (33.0 - 37.0 G/DL) 33.6 Diagnostic Data EKG Results EKG tracings are independently reviewed. EKG from 193 yesterday revealed atrial fibrillation with ventricular response of [address]-T abnormality EKG from 223 today revealed atrial fibrillation with ventricular response of 96 and nonspecific T-wave abnormality EKG from 314 today reveals normal sinus rhythm at 72 CXR Results Negative Other Results Echocardiogram 09/04/15: Normal LV size and systolic function. LVEF 5560 percent. Moderate diastolic dysfunction. Mild to moderate tricuspid regurgitation. RVSP 46. Mild mitral regurgitation. Assessment/Plan Assessment/Plan The patient is a 76-year-old female with history of palpitations, but no previously documented atrial fibrillation. She is noted to develop atrial fibrillation with rapid ventricular rate postoperatively status post right total knee replacement. She has converted to sinus rhythm. Recommendations: * Continue her usual dose of metoprolol for rate control * Eliquis 5 mg by mouth twice a day, which is the indicated dose for atrial fibrillation. The patient was initially planned to be on a lower dose of Eliquis for DVT prophylaxis. * Echocardiogram. * Monitor on telemetry for further arrhythmias. Copies To: BETZAIDA GARCIA,KARINA Ruiz Consult Acknowledgment - Thank you for your consult request.
[2016-12-03 10:11] LABS: WHITE BLOOD CELL COUNT 19.1 /CUMM (4.8-10.8)
--- NOTE | 2016-12-03 12:32 | Admission Core Measures ---
Admission Lab Results I reviewed the following labs: Laboratory Tests 12/03 12/03 0625 0230 Chemistry Sodium (137 - 145 mmol/L) 138 137 Potassium (3.5 - 5.1 mmol/L) 3.6 3.7 Chloride (98 - 107 mmol/L) 104 102 Carbon Dioxide (22 - 30 mmol/L) 23 25 Anion Gap (5 - 16) 11 10 BUN (7 - 17 mg/dL) 7 7 Creatinine (0.5 - 1.0 mg/dL) 0.5 0.5 Estimated GFR (>60 ml/min) > 60 > 60 BUN/Creatinine Ratio (7 - 25 %) 14.0 14.0 Magnesium (1.6 - 2.3 mg/dL) 1.6 Troponin I (< 0.11 ng/ml) 0.01 Hematology CBC w Diff NO MAN DIFF REQ WBC (4.8 - 10.8 /CUMM) 19.1 H RBC (4.20 - 5.40 /CUMM) 3.99 L Hgb (12.0 - 16.0 G/DL) 13.9 Hct (37 - 47 %) 40.8 MCV (81.0 - 99.0 FL) 102.3 H MCH (27.0 - 31.0 PG) 34.7 H RDW (11.5 - 14.5 %) 12.9 Plt Count (130 - 400 /CUMM) 222 MPV (7.4 - 10.4 FL) 8.4 Gran % (42.2 - 75.2 %) 93.2 H Lymphocytes % (20.5 - 51.1 %) 5.1 L Monocytes % (1.7 - 9.3 %) 1.7 Eosinophils % (0 - 5 %) 0 Basophils % (0.0 - 2.0 %) 0 L Absolute Granulocytes (1.4 - 6.5 /CUMM) 17.8 H Absolute Lymphocytes (1.2 - 3.4 /CUMM) 1.0 L Absolute Monocytes (0.10 - 0.60 /CUMM) 0.3 Absolute Eosinophils (0.0 - 0.7 /CUMM) 0 Absolute Basophils (0.0 - 0.2 /CUMM) 0 PUBS MCHC (33.0 - 37.0 G/DL) 34.0 12/02 1952 Chemistry Sodium (137 - 145 mmol/L) 135 L Potassium (3.5 - 5.1 mmol/L) 3.3 L Chloride (98 - 107 mmol/L) 99 Carbon Dioxide (22 - 30 mmol/L) 26 Anion Gap (5 - 16) 11 BUN (7 - 17 mg/dL) 8 Creatinine (0.5 - 1.0 mg/dL) 0.5 Estimated GFR (>60 ml/min) > 60 BUN/Creatinine Ratio (7 - 25 %) 16.0 Phosphorus (2.5 - 4.5 mg/dL) 2.4 L Magnesium (1.6 - 2.3 mg/dL) 1.8 Troponin I (< 0.11 ng/ml) 0.01 TSH (0.270 - 4.200 uIU/mL) 0.573 Free T4 (0.78 - 2.44 ng/dL) 1.06 Hematology CBC w Diff NO MAN DIFF REQ WBC (4.8 - 10.8 /CUMM) 15.4 H RBC (4.20 - 5.40 /CUMM) 4.26 Hgb (12.0 - 16.0 G/DL) 14.6 Hct (37 - 47 %) 43.5 MCV (81.0 - 99.0 FL) 101.9 H MCH (27.0 - 31.0 PG) 34.3 H RDW (11.5 - 14.5 %) 12.8 Plt Count (130 - 400 /CUMM) 227 MPV (7.4 - 10.4 FL) 8.1 Gran % (42.2 - 75.2 %) 94.8 H Lymphocytes % (20.5 - 51.1 %) 4.9 L Monocytes % (1.7 - 9.3 %) 0.3 L Eosinophils % (0 - 5 %) 0 Basophils % (0.0 - 2.0 %) 0 L Absolute Granulocytes (1.4 - 6.5 /CUMM) 14.6 H Absolute Lymphocytes (1.2 - 3.4 /CUMM) 0.8 L Absolute Monocytes (0.10 - 0.60 /CUMM) 0.1 L Absolute Eosinophils (0.0 - 0.7 /CUMM) 0.0 Absolute Basophils (0.0 - 0.2 /CUMM) 0 PUBS MCHC (33.0 - 37.0 G/DL) 33.6 Admission Meds I reviewed the following Meds: Current Medications Sig/Robby Start time Last Medication Dose Stop Time Status Admin Acetaminophen 1,000 MG Q6-PRN PRN 12/03 0845 AC (Ofirmev) N/A 1 UNIT (No Carrier) Apixaban 2.5 MG BID 12/03 1000 CAN (Eliquis) Apixaban 5 MG BID 12/02 2200 AC 12/03 (Eliquis) 0921 Clonazepam 0.5 MG BID PRN 12/02 181 AC 12/03 (KlonoPIN) 12/09 181 0131 Diltiazem HCl 120 MG DAILY 12/03 1000 CAN (Cardizem CD) Docusate Sodium 100 MG DAILY NEEDED PRN 12/02 181 AC 12/03 (Colace) 0919 Metoprolol Tartrate 50 MG 1200 12/03 1200 AC 12/03 (Lopressor) 1155 Metoprolol Tartrate 100 MG BID 12/02 2200 AC 12/03 (Lopressor) 0920 Morphine Sulfate 2 MG Q3P PRN 12/02 181 AC (Morphine) Morphine Sulfate 2 MG Q3P PRN 12/02 1815 AC 12/02 (Morphine) 2313 Ondansetron HCl 4 MG Q6P PRN 12/02 1815 AC 12/03 (Zofran) 0812 Oxycodone HCl 5 MG Q4P PRN 12/02 191 AC (Roxicodone) Oxycodone HCl 10 MG Q4P PRN 12/02 1915 AC 12/03 (Roxicodone) 0537 Polyethylene Glycol 17 GM DAILY NEEDED PRN 12/02 181 AC (Miralax) Pravastatin Sodium 20 MG 1700 12/03 1700 AC (Pravachol) Senna/Docusate Sodium 2 TAB AT BEDTIME NEED.. 12/02 181 AC (Senokot S) Trimethobenzamide HCl 200 MG TIDPRN PRN 12/02 2100 AC 12/03 (Tigan) 0921 Acute Coronary Syndrome Inclusion Criteria ACS Diagnosis No Inpatient Core Measures LDL Reminder: If No, please order W/I first 24hr of stay Congestive Heart Failure Inclusion Criteria CHF Diagnosis No Cerebrovascular accident Inclusion Criteria CVA/TIA Diagnosis No Inpatient Core Measures Bedside Swallow Eval Reminder: If BSE failed, place ST order Antithrombotic Reminder: Order Antithrombotic Medication by end of day 2 Antithrombotic Reminder: Document Reason Antithrombotic Not ordered by end of day 2 AFIB/Flutter Reminder: If Present, add to problem list AFIB/Flutter Reminder: Order Anticoag Medication for pts with AFIB/Flutter Atherosclerosis Reminder: If Present, add to problem list LDL Reminder: If No, please order W/I first 24hr of stay PT Order Reminder: If No, please order Venous thromboembolism Inpatient Core Measures VTE Risk Factors: Age > 40, Surgery No [facility] VTE prophylaxis d/t No contraindications No VTE Pharm Prophylaxis d/t No contraindications Inclusion Criteria - Per Current guidelines, there needs to be overlap - treatment for the first 5 days of Warfarin therapy. - Parenteral Anticoagulation (IV or SC) needs to be - given along with Warfarin therapy. VTE Diagnosis No VTE Type NONE VTE Confirmed by (Test) NONE Problem List As ranked by this Provider includes Assessment & Plan 1. Atrial fib/flutter, transient 2. Osteoarthritis of knee, unilateral HOME MEDS Home Med List Clonazepam 0.5 MG TABLET 1 TAB PO BIDP VERTIGO (Reported) Diltiazem HCl (Diltiazem 12HR ER) 120 MG CAP.ER.12H 1 CAP PO DAILY HTN ( Reported) Ferrous Sulfate 325 MG (65 MG IRON) TABLET 1 TAB PO DAILY PRE OP (Reported) Metoprolol Tartrate (Lopressor) 100 MG TABLET 1 TAB PO BID BP (Reported) Metoprolol Tartrate (Lopressor) 50 MG TABLET 1 TAB PO NOON BP (Reported) Pravastatin Sodium (Pravachol) 20 MG TABLET 1 TAB PO DAILY CHOLESTEROL ( Reported)
--- NOTE | 2016-12-03 12:36 | Surgical Discharge Summary ---
Visit Information Visit Dates Admission Date: 12/02/16 Discharge Date: 12/04/16 History of Present Illness Chief Complaint: Right knee pain Medical History Neurological: vertigo EENT: NONE Cardiovascular: TACHYCARDIC Respiratory: NONE Gastrointestinal: GERD Hepatic: NONE Renal: NONE Musculoskeletal: NONE Psychiatric: NONE Endocrine: osteoporosis Blood Disorders: NONE Cancer(s): NONE IT SUPPORT SPECIALIST/Reproductive: NONE Isolation History: Standard Surgical History Pertinent Surgical History: knee replacement Family History Relations & Conditions If Any: MOTHER Breast cancer Psychosocial History Where Do You Live? Home Who Do You Live With? Spouse Services at Home: None What is Your Primary Language? Kazakh Review of Systems: n/a Hospital Course Course Attending Physician: MAXIMILIAN LUO MD Primary Care Physician: KIYA GARCIA,[facility] Course: Patient underwent a right total knee arthroplasty on 12/[address] Luo that went without complications. On the evening of postoperative day #0, patient was found to be in rapid atrial fibrillation and was transferred to the telemetry floor. She was placed on a Cardizem drip and converted spontaneously to normal sinus rhythm. She was placed on full dose and was placed on eliquis 5 mg twice a day and was evaluated by mattress finisher Dr. Hoffmann. Echocardiogram is ordered and patient was monitored on telemetry for any further arrhythmias. Metoprolol was continued. She had mild leukocytosis postoperatively as well and she was monitored for signs of infection. She received antibiotics for prophylaxis for the first 24 hours perioperatively. She was stable for discharge on POD #2 with outpatient follow up with her primary mattress finisher for follow up of her Afib. She was given a 5 week course of Eliquis and her primary mattress finisher can prescribe further refills. Complications: New-onset atrial fibrillation with rapid ventricular response, see above Allergies: Coded Allergies: No Known Allergies (11/19/16) Disposition Summary Disposition Principal Diagnosis: Primary unilateral right knee osteoarthritis Additional Diagnosis: Status post right total knee arthroplasty. New-onset rapid atrial fibrillation Discharge Disposition: home health services Discharge Instructions General Discharge Information Code Status: Full Code Patient's Diet: Regular Patient's Activity: As per total knee protocol, weightbearing as tolerated, ambulate with a walker with assistance Follow-Up Instructions/Appts: To follow-up with Dr. Luo as outpatient in 10-14 days. Continue full dose anticoagulation and follow-up with primary mattress finisher in 1- 2 weeks Medications at Discharge Discharge Medications: Continue taking these medications: Metoprolol Tartrate (Lopressor) 100 MG TABLET 1 Tablet ORAL TWICE DAILY Metoprolol Tartrate (Lopressor) 50 MG TABLET 1 Tablet ORAL NOON Diltiazem HCl (Diltiazem 12HR ER) 120 MG CAP.ER.12H 1 Capsule ORAL DAILY Pravastatin Sodium (Pravachol) 20 MG TABLET 1 Tablet ORAL DAILY Clonazepam (Clonazepam) 0.5 MG TABLET 1 Tablet ORAL 2 x Daily as needed Ferrous Sulfate (Ferrous Sulfate) 325 MG (65 MG IRON) TABLET 1 Tablet ORAL DAILY Start taking the following new medications: Apixaban (Eliquis) 5 MG TABLET 5 Milligram ORAL TWICE DAILY Qty = 70 No Refills Instructions: take for 5 weeks Docusate Sodium (Docusate Sodium) 100 MG CAPSULE 100 Milligram ORAL TWICE DAILY Qty = 60 No Refills Oxycodone HCl (Oxycodone HCl) 5 MG TABLET 5 Milligram ORAL EVERY 4 HOURS NEEDED as needed for PAIN Qty = 30 No Refills Acetaminophen (8 Hour) 650 MG TABLET.ER 650 Milligram ORAL EVERY SIX HOURS as needed for PAIN Qty = 30 No Refills
--- NOTE | 2016-12-03 12:49 | Patient Discharge Instructions ---
Discharge Instructions General Discharge Information You were seen/treated for: Right primary knee unilateral osteoarthritis You had these procedures: Right total knee arthroplasty Watch for these problems: Worsening pain, swelling, redness about the knee, fever greater than 101, difficulty walking Watch for any symptoms of irregular fast heartbeat and palpitations feeling lightheaded dizzy or weak or feeling as if you're going to pass out Do not soak the wound: Yes No bath, but you may shower: Yes Other wound care: Dry dressings daily or Band-Aids. You may shower, do not submerge the wound Special Instructions: You will need to follow up with sound cutter, please call to make an appointment at your earliest convenience. You will be discharged on 5 weeks of Eliquis. Take twice a day as prescribed. Diet Continue normal diet: Yes Recommended Diet: Regular Activity Full Activity/No Limits: No Activity Self Limited: Yes Pounds, do NOT lift more than: 10 Activity Limited to: Weight bear as tolerated Acute Coronary Syndrome Inclusion Criteria At DC or during hospital stay patient has or had the following: ACS DIAGNOSIS No Discharge Core Measures Meds if any: Prescribed or Continued at Discharge Meds if any: NOT Prescribed or Continued at Discharge Congestive Heart Failure Inclusion Criteria At DC or during hospital stay patient has or had the following: CHF DIAGNOSIS No Discharge Core Measures Meds if any: Prescribed or Continued at Discharge Meds if any: NOT Prescribed or Continued at Discharge Cerebrovascular accident Inclusion Criteria At DC or during hospital stay patient has or had the following: CVA/TIA Diagnosis No Discharge Core Measures Meds if any: Prescribed or Continued at Discharge Meds if any: NOT Prescribed or Continued at Discharge Venous thromboembolism Inclusion Criteria VTE Diagnosis No VTE Type NONE VTE Confirmed by (Test) NONE Discharge Core Measures - Per Current guidelines, there needs to be overlap - treatment for the first 5 days of Warfarin therapy. - If discharged on Warfarin prior to 5 days of - overlap therapy, the patient will need to be - assessed for post discharge needs including - *Post discharge parental anticoagulation - *Warfarin and/or parental anticoagulation education - *Follow up date to check INR post discharge At least 5 days overlap therapy as Inpatient No Meds if any: Prescribed or Continued at Discharge Note: Overlap Therapy is Warfarin and Anticoagulant Meds if any: NOT Prescribed or Continued at Discharge
[2016-12-03 13:11] VITALS: BP 110/60
[2016-12-03 14:40] VITALS: BP 100/58
--- NOTE | 2016-12-03 21:33 | ECHOCARDIOGRAM REPORT ---
[place] Age: 76 : 1940 Gender: F Exam Date: 12/03/2016 16:40 Exam Location: [address] Ht (in): 62 Wt (lb): 214 BSA: 2.11 BP: 100 / 58 Ordering Physician: DAMIEN RIVERA MD Referring Physician: Valentín Hoffmann MD Technologist: Anna Pleitez [facility] Room Number: 184 Indications: AFIB/FLUTTER Rhythm: Sinus Technical Quality: Fair FINDINGS Left Ventricle Normal size left ventricle. Normal left ventricular wall thickness. Normal left ventricular ejection fraction visually estimated at > 60%. No obvious regional wall motion abnormalities. Right Ventricle Normal right ventricular size and function. Right Atrium Normal right atrial size. Left Atrium Mild left atrial dilatation. Mitral Valve Mild mitral annular calcification. Aortic Valve Diffuse thickening (sclerosis) of the aortic valve cusps without reduced excursion. No aortic stenosis. No aortic regurgitation. Tricuspid Valve Tricuspid valve not well visualized, grossly normal. Mild tricuspid regurgitation. No evidence of pulmonary hypertension. Right ventricular systolic pressure estimated to be elevated at 41 mmHg. Pulmonic Valve Pulmonic valve not well visualized, grossly normal. Trace pulmonic regurgitation. Pericardium No pericardial effusion. Great Vessels Normal size aortic root. CONCLUSIONS Normal size left ventricle. Normal left ventricular wall thickness. Normal left ventricular ejection fraction visually estimated at > 60%. Mild left atrial dilatation. Mild tricuspid regurgitation. Valentín Hoffmann M.D. (Electronically Signed) Final Date: 03 December 2016 21:32 MEASUREMENTS (Male / Female) Normal Values 2D ECHO LV Diastolic Diameter PLAX 4.4 cm 4.2 - 5.9 / 3.9 - 5.3 cm LV Systolic Diameter PLAX 2.6 cm 2.1 - 4.0 cm LV Fractional Shortening PLAX 40.9 % 25 - 46 % LV Ejection Fraction 2D Teich 71.9 % IVS Diastolic Thickness 1.0 cm LVPW Diastolic Thickness 1.1 cm LV Relative Wall Thickness 0.5 RV Internal Dim ED PLAX 2.9 cm 1.9 - 3.8 cm LVOT Diameter 1.8 cm Aortic Root Diameter 2.9 cm LA Systolic Diameter LX 4.1 cm 3.0 - 4.0 / 2.7 - 3.8 cm LA Volume 51.0 cm 18 - 58 / 22 - 52 cm Ascending Aorta Diameter 3.0 cm DOPPLER AV Peak Velocity 128.0 cm/s AV Peak Gradient 6.6 mmHg AV Mean Velocity 91.3 cm/s AV Mean Gradient 4.0 mmHg AV Velocity Time Integral 30.9 cm LVOT Peak Velocity 97.8 cm/s LVOT Peak Gradient 3.8 mmHg LVOT Mean Velocity 65.8 cm/s LVOT Mean Gradient 2.0 mmHg LVOT Velocity Time Integral 23.3 cm LVOT Stroke Volume 59.3 cm AV Area Cont Eq vti 1.9 cm AV Area Cont Eq pk 1.9 cm MV Peak Velocity 110.0 cm/s MV Peak Gradient 4.8 mmHg MV Mean Velocity 57.7 cm/s MV Mean Gradient 2.0 mmHg Mitral E Point Velocity 106.0 cm/s Mitral A Point Velocity 79.5 cm/s Mitral E to A Ratio 1.3 MV PHT Velocity 116.0 cm/s MV Deceleration [place] 467.0 cm/s MV Pressure Half Time 74.5 ms MV Area PHT 3.0 cm MV Deceleration Time 187.0 ms TR Peak Velocity 301.0 cm/s TR Peak Gradient 36.2 mmHg Right Atrial Pressure 5.0 mmHg Pulmonary Artery Systolic Pressu 41.2 mmHg Right Ventricular Systolic Press 41.2 mmHg PV Peak Velocity 79.0 cm/s PV Peak Gradient 2.5 mmHg PV Mean Velocity 61.5 cm/s PV Mean Gradient 2.0 mmHg PV Velocity Time Integral 21.7 cm LV E' Lateral Velocity 7.8 cm/s Mitral E to LV E' Lateral Ratio 13.6 LV E' Septal Velocity 6.1 cm/s Mitral E to LV E' Septal Ratio 17.3
[2016-12-03 22:18] VITALS: BP 102/58
[2016-12-04 07:18] VITALS: BP 122/62
--- NOTE | 2016-12-04 08:01 | PN- Orthopedic ---
Subjective Subjective: POD #2 s/p right TKR. Hospital course complicated by Afib with RVR. Eliquis increased to therapeutic dosing. No issues overnight. Denies CP/SOB, palpitations, N/V, F/C. Voiding spontaneously. Tolerating a regular diet. Echo performed yesterday-EF >60%. Objective Vital Signs and I&Os Vital Signs Date Time Temp Pulse Resp B/P B/P Pulse O2 O2 Flow FiO2 Mean Ox Delivery Rate 12/04 0921 89 122/62 12/04 0718 99.2 89 18 122/62 94 Room Air 12/03 2218 98.2 71 16 102/58 92 Room Air 12/03 2147 68 102/68 12/03 1440 98.1 72 18 100/58 95 Room Air 12/03 1311 98.2 63 18 110/60 95 Room Air 12/03 1155 60.0 65 Intake & Output 12/04 1600 12/04 0800 12/04 0000 12/03 1600 12/03 0800 12/03 0000 Intake Total 590 691 4263 Output Total 300 098 525 7792 Balance -100 -40 -550 -1070 Intake, IV 110 1140 Intake, Oral 200 400 240 Number 0 Bowel Movements Output, Urine 300 833 609 7433 Patient 215 lb Weight Weight Reported by Patient Measurement Method Physical Exam: Gen: AAOx3 in NAD Cor: S1+S2+ Lungs: CTA juan jose Abd: soft, NT, ND, +BS x4 Ext: right knee dressing removed. Incision intact with micheal. No surrounding erythema, ecchymosis or edema. Dorsiflexion/plantar flexion intact. DP pulses palpable. Dressing replaced . Current Medications: Current Medications Sig/Robby Start time Last Medication Dose Route Stop Time Status Admin Acetaminophen 1,000 MG Q6-PRN PRN 12/03 0845 DC 12/03 N/A 1 UNIT IV 1925 Apixaban 5 MG BID 12/02 2200 AC 12/04 PO 920 Clonazepam 0.5 MG BID PRN 12/02 181 AC 12/04 PO 12/09 18108 2321 Diltiazem HCl 120 MG DAILY 12/04 1000 AC 12/04 PO 09 Docusate Sodium 100 MG DAILY NEEDED PRN 12/02 181 AC 12/04 PO 09 Meclizine HCl 12.5 MG ONCE ONE 12/03 1000 DC 12/03 PO 12/03 1001 1155 Metoprolol Tartrate 50 MG 1200 12/03 1200 AC 12/03 PO 1155 Metoprolol Tartrate 100 MG BID 12/02 2200 AC 12/04 PO 0921 Morphine Sulfate 2 MG Q3P PRN 12/02 1814 AC IV Morphine Sulfate 2 MG Q3P PRN 12/02 181 DC 12/04 IV 0111 Ondansetron HCl 4 MG Q6P PRN 12/02 181 AC 12/04 IV 0114 Oxycodone HCl 5 MG Q4P PRN 12/02 1914 AC PO Oxycodone HCl 10 MG Q4P PRN 12/02 1914 AC 12/03 PO 0537 Patient Medication 1 ED .STK-MED ONE 12/03 1354 DC Teaching ED 12/03 1355 Polyethylene Glycol 17 GM DAILY NEEDED PRN 12/02 1814 AC 12/04 PO 0921 Pravastatin Sodium 20 MG 1700 12/03 1700 AC 12/03 PO 1718 Senna/Docusate Sodium 2 TAB AT BEDTIME NEED.. 12/02 1814 AC 12/03 PO 2147 Trimethobenzamide HCl 200 MG TIDPRN PRN 12/02 2100 AC 12/03 IM 0921 Results Last 48 Hours of Labs: Laboratory Tests 12/04 12/03 0651 0625 Chemistry Sodium (137 - 145 mmol/L) 138 Potassium (3.5 - 5.1 mmol/L) 3.6 Chloride (98 - 107 mmol/L) 104 Carbon Dioxide (22 - 30 mmol/L) 23 Anion Gap (5 - 16) 11 BUN (7 - 17 mg/dL) 7 Creatinine (0.5 - 1.0 mg/dL) 0.5 Estimated GFR (>60 ml/min) > 60 BUN/Creatinine Ratio (7 - 25 %) 14.0 Hematology CBC w Diff NO MAN DIFF REQ NO MAN DIFF REQ WBC (4.8 - 10.8 /CUMM) 17.3 H 19.1 H RBC (4.20 - 5.40 /CUMM) 3.84 L 3.99 L Hgb (12.0 - 16.0 G/DL) 13.3 13.9 Hct (37 - 47 %) 39.2 40.8 MCV (81.0 - 99.0 FL) 102.0 H 102.3 H MCH (27.0 - 31.0 PG) 34.6 H 34.7 H RDW (11.5 - 14.5 %) 13.3 12.9 Plt Count (130 - 400 /CUMM) 247 222 MPV (7.4 - 10.4 FL) 8.8 8.4 Gran % (42.2 - 75.2 %) 84.6 H 93.2 H Lymphocytes % (20.5 - 51.1 %) 11.8 L 5.1 L Monocytes % (1.7 - 9.3 %) 3.3 1.7 Eosinophils % (0 - 5 %) 0 0 Basophils % (0.0 - 2.0 %) 0.3 0 L Absolute Granulocytes (1.4 - 6.5 /CUMM) 14.7 H 17.8 H Absolute Lymphocytes (1.2 - 3.4 /CUMM) 2.0 1.0 L Absolute Monocytes (0.10 - 0.60 /CUMM) 0.6 0.3 Absolute Eosinophils (0.0 - 0.7 /CUMM) 0 0 Absolute Basophils (0.0 - 0.2 /CUMM) 0.1 0 PUBS MCHC (33.0 - 37.0 G/DL) 34.0 34.0 12/03 12/02 0230 1953 Chemistry Sodium (137 - 145 mmol/L) 137 135 L Potassium (3.5 - 5.1 mmol/L) 3.7 3.3 L Chloride (98 - 107 mmol/L) 102 99 Carbon Dioxide (22 - 30 mmol/L) 25 26 Anion Gap (5 - 16) 10 11 BUN (7 - 17 mg/dL) 7 8 Creatinine (0.5 - 1.0 mg/dL) 0.5 0.5 Estimated GFR (>60 ml/min) > 60 > 60 BUN/Creatinine Ratio (7 - 25 %) 14.0 16.0 Phosphorus (2.5 - 4.5 mg/dL) 2.4 L Magnesium (1.6 - 2.3 mg/dL) 1.6 1.8 Troponin I (< 0.11 ng/ml) 0.01 0.01 TSH (0.270 - 4.200 uIU/mL) 0.573 Free T4 (0.78 - 2.44 ng/dL) 1.06 Hematology CBC w Diff NO MAN DIFF REQ WBC (4.8 - 10.8 /CUMM) 15.4 H RBC (4.20 - 5.40 /CUMM) 4.26 Hgb (12.0 - 16.0 G/DL) 14.6 Hct (37 - 47 %) 43.5 MCV (81.0 - 99.0 FL) 101.9 H MCH (27.0 - 31.0 PG) 34.3 H RDW (11.5 - 14.5 %) 12.8 Plt Count (130 - 400 /CUMM) 227 MPV (7.4 - 10.4 FL) 8.1 Gran % (42.2 - 75.2 %) 94.8 H Lymphocytes % (20.5 - 51.1 %) 4.9 L Monocytes % (1.7 - 9.3 %) 0.3 L Eosinophils % (0 - 5 %) 0 Basophils % (0.0 - 2.0 %) 0 L Absolute Granulocytes (1.4 - 6.5 /CUMM) 14.6 H Absolute Lymphocytes (1.2 - 3.4 /CUMM) 0.8 L Absolute Monocytes (0.10 - 0.60 /CUMM) 0.1 L Absolute Eosinophils (0.0 - 0.7 /CUMM) 0.0 Absolute Basophils (0.0 - 0.2 /CUMM) 0 PUBS MCHC (33.0 - 37.0 G/DL) 33.6 Assessment/Plan Assessment/Plan A: POD #2 s/p right TKR with hospital course complicated by Afib with RVR. Echo with EF >60%. Plan: Discussed with cardiology. Ok for d/c on Eliquis 5 mg BID Pain management with tylenol and oxycodone for breakthrough pain. Continue PT. D/C home with PT services. Outpatient follow up with cardiology (Dr. Cheri Neely). Outpatient follow up with Dr Monroe. Core Measures/Miscellaneous Venous Thromboembolism VTE Risk Factors: Age > 40, Surgery VTE Contraindications: No Contraindications VTE Diagnosis: No VTE Type: NONE VTE Confirmed by (Test): NONE Beta January Is Beta January a Home Med? Yes If Yes, Was This Ordered Today? Yes Antibiotics Is Patient on Antibiotics? Yes If Yes: prophylaxis
[2016-12-04] MEDS ORDERED: ELIQUIS5 M1 PO ×2 (08:03→08:17)
[2016-12-04] MEDS ORDERED: 8 HOUR650 MG PO (08:09)
[2016-12-04] MEDS ORDERED: DOCUSATE SODIU100 M3 PO (08:09)
[2016-12-04] MEDS ORDERED: OXYCODONE HCL5 M1 PO (08:10)
[2016-12-04 08:19] LABS: ABSOLUTE BASOPHIL COUNT 0.1 /CUMM (0.0-0.2); ABSOLUTE EOSINOPHIL COUNT 0 /CUMM (0.0-0.7); ABSOLUTE GRANULOCYTE CT 14.7 /CUMM (1.4-6.5); ABSOLUTE MONOCYTE COUNT 0.6 /CUMM (0.10-0.60); BASOPHIL % 0.3 % (0.0-2.0); EOSINOPHIL % 0 % (0-5); GRANULOCYTE % 84.6 % (42.2-75.2); HEMATOCRIT 39.2 % (37-47); MEAN CORPUSCULAR HGB 34.6 PG (27.0-31.0); MEAN PLATELET VOLUME 8.8 FL (7.4-10.4); PLATELET COUNT 247 /CUMM (130-400); RBC DISTRIBUTION WIDTH 13.3 % (11.5-14.5); RED BLOOD CELL CT 3.84 /CUMM (4.20-5.40); WHITE BLOOD CELL COUNT 17.3 /CUMM (4.8-10.8)
[2016-12-04 09:21] VITALS: BP 122/62
--- NOTE | 2016-12-04 19:44 | PN- Cardiology ---
Subjective Subjective: The patient remains in sinus rhythm. No current complaints. No chest pain. No shortness of breath. No palpitations. Objective Vital Signs and I&Os Vital Signs Date Time Temp Pulse Resp B/P B/P Pulse O2 O2 Flow FiO2 Mean Ox Delivery Rate 12/04 0921 89 122/62 12/04 0718 99.2 89 18 122/62 94 Room Air 12/03 2218 98.2 71 16 102/58 92 Room Air 12/03 2147 68 102/68 Intake & Output 12/04 1600 12/04 0800 12/04 0000 12/03 1600 12/03 0800 12/03 0000 Intake Total 563 125 0458 Output Total 300 731 981 6870 Balance -100 -40 -550 -1070 Intake, IV 110 1140 Intake, Oral 200 400 240 Number 0 Bowel Movements Output, Urine 300 387 182 7846 Patient 215 lb Weight Weight Reported by Patient Measurement Method Physical Exam: Gen: The patient is in no acute distress HEENT: Normal nose, ears, and oropharynx. Pupils equal bilaterally. Conjunctiva normal. Neck: Supple with no JVD, no masses, and no thyromegaly Lungs: Clear to auscultation with normal respiratory effort Heart: RRR, S1, S2, no murmurs. No peripheral edema, 2+ pulses in the lower extremities bilaterally Abdomen: Soft, nontender, no masses. No hepatomegaly. No splenomegaly Extremities: No clubbing or cyanosis. Normal muscle strength in the upper and lower extremities Skin: Normal skin turgor with no skin ulcers or lesions noted. Current Medications: Current Medications Sig/Robby Start time Last Medication Dose Route Stop Time Status Admin Apixaban 5 MG BID 12/02 2199 DCD 12/04 PO 920 Clonazepam 0.5 MG BID PRN 12/02 1814 DCD 12/04 PO 12/09 1813 0921 Diltiazem HCl 120 MG DAILY 12/04 1000 DCD 12/04 PO 0920 Docusate Sodium 100 MG DAILY NEEDED PRN 12/02 1814 DCD 12/04 PO 0921 Metoprolol Tartrate 50 MG 1200 12/03 1200 DCD 12/03 PO 1155 Metoprolol Tartrate 100 MG BID 12/02 2199 DCD 12/04 PO 0921 Morphine Sulfate 2 MG Q3P PRN 12/02 1814 DCD IV Morphine Sulfate 2 MG Q3P PRN 12/02 1814 DC 12/04 IV 0111 Ondansetron HCl 4 MG Q6P PRN 12/02 1814 DCD 12/04 IV 0114 Oxycodone HCl 5 MG Q4P PRN 12/02 1914 DCD PO Oxycodone HCl 10 MG Q4P PRN 12/02 1914 DCD 12/03 PO 0537 Polyethylene Glycol 17 GM DAILY NEEDED PRN 12/02 1814 DCD 12/04 PO 0921 Pravastatin Sodium 20 MG 1700 12/03 1700 DCD 12/03 PO 1718 Senna/Docusate Sodium 2 TAB AT BEDTIME NEED.. 12/02 1814 DCD 12/03 PO 2147 Trimethobenzamide HCl 200 MG TIDPRN PRN 12/02 2100 DCD 12/03 IM 0921 Results Last 48 Hrs of Labs/Mics: Laboratory Tests 12/04/16 0651: CBC w Diff NO MAN DIFF REQ, RBC 3.84 L, MCV 102.0 H, MCH 34.6 H, RDW 13.3, MPV 8.8, Gran % 84.6 H, Lymphocytes % 11.8 L, Monocytes % 3.3, Eosinophils % 0 , Basophils % 0.3, Absolute Granulocytes 14.7 H, Absolute Lymphocytes 2.0, Absolute Monocytes 0.6, Absolute Eosinophils 0, Absolute Basophils 0.1, PUBS MCHC 34.0 12/03/16 0625: Anion Gap 11, Estimated GFR > 60, BUN/Creatinine Ratio 14.0, CBC w Diff NO MAN DIFF REQ, RBC 3.99 L, MCV 102.3 H, MCH 34.7 H, RDW 12.9, MPV 8.4, Gran % 93.2 H, Lymphocytes % 5.1 L, Monocytes % 1.7, Eosinophils % 0, Basophils % 0 L, Absolute Granulocytes 17.8 H, Absolute Lymphocytes 1.0 L, Absolute Monocytes 0.3, Absolute Eosinophils 0, Absolute Basophils 0, PUBS MCHC 34.0 12/03/16 0230: Anion Gap 10, Estimated GFR > 60, BUN/Creatinine Ratio 14.0, Magnesium 1.6, Troponin I 0.01 12/02/16 1953: Anion Gap 11, Estimated GFR > 60, BUN/Creatinine Ratio 16.0, Phosphorus 2.4 L, Magnesium 1.8, Troponin I 0.01, TSH 0.573, Free T4 1.06, CBC w Diff NO MAN DIFF REQ, RBC 4.26, MCV 101.9 H, MCH 34.3 H, RDW 12.8, MPV 8.1, Gran % 94.8 H, Lymphocytes % 4.9 L, Monocytes % 0.3 L, Eosinophils % 0, Basophils % 0 L, Absolute Granulocytes 14.6 H, Absolute Lymphocytes 0.8 L, Absolute Monocytes 0.1 L, Absolute Eosinophils 0.0, Absolute Basophils 0, PUBS MCHC 33.6 Assessment/Plan Assessment/Plan Assessment: 1. Paroxysmal atrial fibrillation, currently in sinus rhythm 2. Status post right total knee replacement Plan: * Continue metoprolol * Restart diltiazem at her usual dose * Continue Eliquis 5 mg by mouth twice a day for paroxysmal atrial fibrillation * Follow up with Dr. Neely in 1-2 weeks. Continue telemetry? No
== END 2016-12-04 10:30 | disposition home health service (06) | DRG 470 ==
LOC: SDA 04:17 → 1NO 04:17 → ENRESERV 15:35 → ENTRNSPT 17:52 → EDTRNSPTSTS 17:58 → 2NA 18:06 → CMPTRNSPT 18:24 → 1NO 20:26
PROVIDERS: Internal Medicine; Nurse Practitioner; Physician Assistant Surgical; ADMIT Orthopaedic Surgery Sports Medicine
PROC: 0SRC0JZ Replacement of Right Knee Joint with Synthetic Substitute, Open Approach (ICD-10-PCS; principal; 2016-12-02)
DX: M17.11 Unilateral primary osteoarthritis, right knee (principal); I48.0 Paroxysmal atrial fibrillation; E83.42 Hypomagnesemia; R11.2 Nausea with vomiting, unspecified; E87.6 Hypokalemia; K21.9 Gastro-esophageal reflux disease without esophagitis; M81.0 Age-related osteoporosis without current pathological fracture; I10 Essential (primary) hypertension; F41.9 Anxiety disorder, unspecified
CPT/HCPCS: 1NP; 1NSP; 36415; 82436; 87086; 93005; 93010; 93306; 97110-GO; 97116-GO; 97161-GP; 97530-GO; C1713; J0131; J0690; J1885; J2405; J2765; J2795; J3250; J7040